=== PATIENT | male | born 1960 | race Caucasian/White ===

== ENCOUNTER 2022-07-07 16:57 | Emergency (ER) | payer BC ==
[2022-07-07 18:11] LABS: Amphetamine Not Detected (NotDetected); Barbiturates Screen Not Detected (NotDetected); Benzodiazepine Screen Detected (NotDetected); Cocaine Metabolite Screen Not Detected (NotDetected); Methadone Not Detected (NotDetected); Methamphetamine Not Detected (NotDetected); Opiate Screen Not Detected (NotDetected); Oxycodone Screen Not Detected (NotDetected); Phencyclidine (PCP) Not Detected (NotDetected); THC/Cannabinoid Screen Not Detected (NotDetected); Tricyclic Screen Not Detected (NotDetected)
[2022-07-07 18:20] LABS: Acetaminophen Less than 10.0 mcg/mL (10.0-30.0); Alcohol Less than 10 mg/dL (Less than 10); Salicylate Less than 8.0 mg/dL (15.0-30.0)
[2022-07-07 18:30] LABS: ALT (SGPT) 58 U/L (8-55); AST (SGOT) 58 U/L (5-34); Albumin 4.2 g/dL (3.4-4.8); Alkaline Phosphatase 110 U/L (40-110); Anion Gap 14 mmol/L (10-20); BUN (Urea Nitrogen) 22 mg/dL (8.4-25.7); Bilirubin, Total 0.3 mg/dL (0.2-1.2); Calc. Creatinine Clearance 0 mL/min (70-130); Calcium 10.4 mg/dL (7.8-10.44); Carbon Dioxide 25 mmol/L (23-31); Chloride 104 mmol/L (98-107); Estimated GFR 55; Globulin 2.9 g/dL (2.4-3.5); Glucose 89 mg/dL (80-115); Potassium 4.5 mmol/L (3.5-5.1); Protein, Total 7.1 g/dL (5.8-8.1); Sodium 138 mmol/L (136-145)
[2022-07-07 18:37] LABS: #Basophils 0.1 10x3/uL (0.0-0.2); #Eosinphils 0.1 10x3/uL (0.0-0.5); #Monocytes 0.8 10x3/uL (0.0-1.1); #Neutrophils 5.6 10x3/uL (1.5-8.4); %Basophils 0.6 % (0.0-2.0); %Lymphocytes 19.2 % (18.0-47.0); %Monocytes 9.3 % (0.0-10.0); %Neutrophils 69.5 % (40.0-75.0); Hemoglobin 13.9 g/dL (13.5-17.5); Mean Corpuscular HGB CONC 35.4 g/dL (32.0-36.0); Mean Corpuscular Hemoglobin 31.2 pg (27.0-33.0); Mean Corpuscular Volume 88.1 fl (81.2-95.1); Mean Platelet Volume 9.9 fl (7.4-10.4); Platelet Count 209 10x3/uL (150-450); RBC Distribution Width 13.2 % (11.5-14.5); Red Blood Cell (RBC) Count 4.46 10x6/uL (4.32-5.72); White Blood Cell (WBC) Count 8.1 10x3/uL (3.5-10.5)
[2022-07-07] MEDS ORDERED: Lorazepam 1 MG TAB ONE (19:54)
[2022-07-07] MEDS ORDERED: traZODone HCl 50 MG TAB ONE (19:55)
[2022-07-07 20:09] LABS: SARS-CoV-2 NAA Rapid Test Not Detected (NotDetected)
[2022-07-07 22:03] LABS: Bilirubin Neg (Negative); Blood, Urine Negative (Negative); Clarity Clear (Clear); Glucose, Urine (Dipstick) Normal (Negative); Ketone, Urine 5 mg/dL (Negative); Leukocyte 25 (Negative); Nitrite Negative (Negative); Protein, Urine (Dipstick) 30 mg/dl (Neg-Trace); Urobilinogen Normal mg/dL (Less than 2)
[2022-07-07 22:20] LABS: Bacteria/HPF None Seen HPF (None Seen); Calcium Oxalate Crystals 1+ HPF (None Seen); RBC/HPF 0-3 HPF (0-3); Squamous Epithelial None Seen HPF (0-3); WBC/HPF 0-3 HPF (0-3)
[2022-07-08] MEDS ORDERED: Sertraline 100 MG TAB PO SCH (10:30)
[2022-07-08] MEDS ORDERED: Donepezil HCl 5 MG TAB PO SCH (10:30)
== END 2022-07-08 10:52 | disposition short-term general hospital (02) ==
LOC: CSHERS 16:57
DX: F03.918 Unspecified dementia, unspecified severity, with other behavioral disturbance (principal); F32.A Depression, unspecified; Z20.822 Contact with and (suspected) exposure to COVID-19; I10 Essential (primary) hypertension; Z79.899 Other long term (current) drug therapy
CPT/HCPCS: 36415; 80053; 80306; 80307; 81003; 81015; 82140; 85025; 87086; 99285